=== PATIENT | male | born 1950 | race Caucasian/White ===

== ENCOUNTER 2023-09-12 19:53 | Emergency (ER) | payer MEDICARE, OTHER ==
[~2023-09-12] VITALS: Ht 180.3 cm; Wt 86.4 kg
[2023-09-12 22:20] VITALS: TEMP 98.8
[2023-09-13 02:45] VITALS: BP 141/77; PULSE 75; RESP 16
== END 2023-09-13 03:28 | disposition home or self-care (01) ==
LOC: EMS 20:05
DX: F32.A Depression, unspecified (principal); R45.851 Suicidal ideations; E11.9 Type 2 diabetes mellitus without complications
CPT/HCPCS: 99284; Z7502

== ENCOUNTER 2023-09-13 11:48 | Inpatient (IN) | payer MEDICARE, MEDICAID ==
[~2023-09-13] VITALS: Ht 180.3 cm; Wt 87.9 kg
[2023-09-13 13:37] LABS: BASOPHILS % (AUTO) 0.9 % (0.0-2.0); EOSINOPHILS % (AUTO) 1.5 % (1.0-6.0); HEMATOCRIT 40.6 % (41-53); HEMOGLOBIN 13.4 g/dL (13.5-17.5); LYMPHOCYTES # (AUTO) 2.5 K/uL (1.0-4.8); LYMPHOCYTES % (AUTO) 21.8 % (22.0-44.0); MEAN CORPUSCULAR HEMOGLOBIN 27.6 pg (26.0-34.0); MEAN CORPUSCULAR HGB CONC 32.9 G/dL (31.0-37.0); MEAN CORPUSCULAR VOLUME 84 fL (80-100); MONOCYTES # (AUTO) 0.7 K/uL (0.1-1.0); MONOCYTES % (AUTO) 5.9 % (2.0-9.0); NEUTROPHILS # (AUTO) 7.9 K/uL (1.8-7.7); NEUTROPHILS % (AUTO) 69.9 % (40.0-70.0); PLATELET COUNT (AUTO) 273 K/uL (150-450); RED BLOOD CELL COUNT(AUTO) 4.85 MIL/uL (4.50-5.90); RED CELL DISTRIBUTION WIDTH 14.7 % (11.5-14.5); WHITE BLOOD COUNT (AUTO) 11.3 K/uL (4.5-11.0)
[2023-09-13 13:46] LABS: ANION GAP 8 mmol/L (8-16); CALCIUM, TOTAL 9.4 mg/dL (8.8-10.5); CARBON DIOXIDE 27 mmol/L (22-29); CHLORIDE 104 mmol/L (98-107); CREATININE 0.68 mg/dL (0.60-1.30); GLOMERULAR FILTR. RATE CALC > 60 mL/min (>60); GLUCOSE,RANDOM 102 mg/dL (70-110); POTASSIUM 4.4 mmol/L (3.5-5.1); SODIUM SERUM 139 mmol/L (136-145); UREA NITROGEN, BLOOD 13 mg/dL (7-18)
[2023-09-13 13:52] LABS: ALCOHOL, BLOOD (SERUM) < 3 mg/dL (0-10)
[2023-09-13] MEDS: LORazepam 1 MG TABLET PO ONE (13:59)
[2023-09-13] MEDS: NICOTINE 14 MG/24 HOUR PATCH TD ONE (15:14)
[2023-09-13 16:25] LABS: COVID AG,FIA SOURCE NASAL SWAB
[2023-09-13 16:50] LABS: SARS-COV2 (COVID) ANTIGEN,FIA Negative (Negative)
[2023-09-13] MEDS: ZOLPIDEM TARTRATE 10 MG TABLET PO PRN (21:02)
[2023-09-13 21:15] VITALS: BP 145/77; PULSE 76; RESP 18; TEMP 97.5
[2023-09-14 05:58] LABS: APPEARANCE,URINE CLEAR (CLEAR); BILIRUBIN,URINE NEGATIVE (NEGATIVE); COLOR,URINE YELLOW (YELLOW); GLUCOSE, URINE (UA) NEGATIVE (NEGATIVE); KETONES,URINE NEGATIVE (NEGATIVE); LEUKOCYTE ESTERASE ,URINE NEGATIVE (NEGATIVE); NITRATE,URINE NEGATIVE (NEGATIVE); OCCULT BLOOD,URINE NEGATIVE (NEGATIVE); PH,URINE 6.5 (5.0-8.0); PH,URINE DRUG SCREEN 6.5 (5.0-8.0); PROTEIN,URINE TRACE mg/dL (NEGATIVE); SPECIFIC GRAVITIY, URINE 1.028 (1.003-1.030)
[2023-09-14] MEDS ORDERED: CloNIDine HCL 0.1 MG TABLET PO PRN (06:00)
[2023-09-14] MEDS ORDERED: ONDANSETRON HCL 4 MG TABLET PO PRN (06:00)
[2023-09-14] MEDS ORDERED: LOPERAMIDE HCL 2 MG CAPSULE PO PRN (06:00)
[2023-09-14] MEDS ORDERED: PETROLATUM,WHITE 28 GM JELLY TP PRN (06:00)
[2023-09-14] MEDS ORDERED: ALBUTEROL SULFATE HFA 90 MCG/PUFF 8 GM INHALER IH PRN (06:00)
[2023-09-14] MEDS ORDERED: ACETAMINOPHEN 325 MG TABLET PO PRN (06:00)
[2023-09-14] MEDS ORDERED: MAG HYDROX/ALUMINUM HYD/SIMETH ES 30 ML SUSPENSION UDCUP PO PRN (06:00)
[2023-09-14] MEDS ORDERED: NICOTINE 14 MG/24 HOUR PATCH TD PRN (06:00)
[2023-09-14] MEDS ORDERED: GuaiFENesin/D-METHORPHAN [SUGAR-FREE] 200-20MG/10 ML SYRUP UDCUP PO PRN (06:00)
[2023-09-14] MEDS ORDERED: DOCUSATE SODIUM 100 MG CAPSULE PO PRN (06:00)
[2023-09-14] MEDS ORDERED: MAGNESIUM HYDROXIDE SUSPENSION 30 ML UDCUP PO PRN (06:00)
[2023-09-14] MEDS ORDERED: IBUPROFEN 400 MG TABLET PO PRN (06:00)
[2023-09-14 06:04] LABS: ALCOHOL, URINE DRUG SCREEN NEGATIVE (NEGATIVE); AMPHET/METH SCREEN,URINE NEGATIVE (NEGATIVE); BARBITURATE SCREEN, URINE NEGATIVE (NEGATIVE); BENZODIAZEPINES SCREEN,URINE NEGATIVE (NEGATIVE); CANNABINOID SCREEN,URINE NEGATIVE (NEGATIVE); COCAINE SCREEN,URINE NEGATIVE (NEGATIVE); METHADONE SCREEN, URINE NEGATIVE (NEGATIVE); OPIATE SCREEN,URINE NEGATIVE (NEGATIVE); PHENCYCLIDINE SCREEN,URINE NEGATIVE (NEGATIVE)
[2023-09-14 06:06] LABS: BACTERIA,URINE None Seen /HPF (None Seen); RBC,URINE None Seen /HPF (0-2); SQUAMOUS EPITHELIAL CELL,UR Few /LPF (None Seen); WBC,URINE None Seen /HPF (0-5)
[2023-09-14] MEDS ORDERED: DEXTROSE 50%-WATER 25 GM/50 ML SYRINGE IVP PRN (06:15)
[2023-09-14 06:35] LABS: GLUCOMETER DEV NAME(LOC) 3E.C; GLUCOSE,POINT OF CARE 91 MG/DL (70-110)
[2023-09-14 11:01] VITALS: BP 157/77; PULSE 72; RESP 18; TEMP 97.3; O2SAT 98
[2023-09-14] MEDS: HydrOXYzine PAMOATE 50 MG CAPSULE PO SCH (12:07)
[2023-09-14] MEDS: DIVALPROEX SODIUM 500 MG DR TABLET PO SCH (12:07)
[2023-09-14] MEDS: TAMSULOSIN HCL 0.4 MG CAPSULE PO SCH (12:07)
[2023-09-14] MEDS: PANTOPRAZOLE SODIUM 40 MG DR TABLET PO SCH (12:07)
[2023-09-14] MEDS: OLANZapine 10 MG TABLET PO SCH (12:10)
[2023-09-14] MEDS: MIDODRINE HCL 5 MG TABLET PO SCH (12:26)
[2023-09-14] MEDS: MetFORMIN HCL 850 MG TABLET PO SCH (12:26)
[2023-09-14] MEDS: APIXABAN 5 MG TABLET PO SCH (12:27)
[2023-09-14] MEDS: INSULIN LISPRO 100 UNITS/ML SQ PRN (16:44)
[2023-09-14 17:00] LABS: GLUCOMETER DEV NAME(LOC) 3E.C; GLUCOSE,POINT OF CARE 82 MG/DL (70-110)
[2023-09-14] MEDS ORDERED: OLANZapine 10 MG TABLET PO SCH (21:00)
[2023-09-14 21:10] VITALS: BP 102/67; PULSE 64; RESP 19; TEMP 97.9; O2SAT 97
[2023-09-15 06:45] LABS: GLUCOMETER DEV NAME(LOC) 3E.C; GLUCOSE,POINT OF CARE 106 MG/DL (70-110)
[2023-09-15 08:22] VITALS: BP 150/84; PULSE 78; RESP 20; TEMP 98.2; O2SAT 98
[2023-09-15 08:24] LABS: THYROID STIMULATING HORMONE 1.35 uIU/mL (0.36-3.74)
[2023-09-15 09:10] LABS: CHOL/HDL RATIO 3.8 (4.2-7.3)
[2023-09-15 16:51] LABS: GLUCOMETER DEV NAME(LOC) 3E.C; GLUCOSE,POINT OF CARE 121 MG/DL (70-110)
[2023-09-15 20:56] VITALS: BP 125/63; PULSE 69; RESP 19; TEMP 97.5; O2SAT 98
[2023-09-16 06:51] LABS: GLUCOMETER DEV NAME(LOC) 3E.C; GLUCOSE,POINT OF CARE 91 MG/DL (70-110)
[2023-09-16] MEDS: QUEtiapine FUMARATE 100 MG TABLET PO PRN (12:38)
[2023-09-16] MEDS: LORazepam 2 MG TABLET PO PRN (12:38)
[2023-09-16 12:44] VITALS: BP 107/64; PULSE 72; RESP 18; TEMP 98.3; O2SAT 98
[2023-09-16 17:30] LABS: GLUCOMETER DEV NAME(LOC) 3E.C; GLUCOSE,POINT OF CARE 105 MG/DL (70-110)
[2023-09-16 20:49] VITALS: BP 143/65; PULSE 92; RESP 18; TEMP 97.3; O2SAT 97
[2023-09-17 06:51] LABS: GLUCOMETER DEV NAME(LOC) 3E.C; GLUCOSE,POINT OF CARE 87 MG/DL (70-110)
[2023-09-17] MEDS: MetFORMIN HCL 500 MG TABLET PO SCH (06:51)
[2023-09-17 08:15] VITALS: BP 126/54; PULSE 77; RESP 17; TEMP 97.9; O2SAT 98
[2023-09-17] MEDS: APIXABAN 2.5 MG TABLET PO SCH (08:32)
[2023-09-17 17:21] LABS: GLUCOMETER DEV NAME(LOC) 3E.C; GLUCOSE,POINT OF CARE 130 MG/DL (70-110)
[2023-09-17 21:08] VITALS: BP 148/80; PULSE 75; RESP 18; TEMP 97.3; O2SAT 97
[2023-09-18 06:30] LABS: GLUCOMETER DEV NAME(LOC) 3E.C; GLUCOSE,POINT OF CARE 90 MG/DL (70-110)
[2023-09-18 09:43] VITALS: BP 159/71; PULSE 74; RESP 18; TEMP 97.6; O2SAT 99
[2023-09-18] MEDS ORDERED: HALOPERIDOL LACTATE 5 MG/ML VIAL ONE (10:25)
[2023-09-18] MEDS ORDERED: DiphenhydrAMINE HCL 50 MG/ML VIAL ONE (10:25)
[2023-09-18] MEDS ORDERED: LORazepam 2 MG/ML VIAL ONE (10:25)
[2023-09-18] MEDS: LORazepam 2 MG/ML VIAL IM ONE (10:38)
[2023-09-18] MEDS: DiphenhydrAMINE HCL 50 MG/ML VIAL IM ONE (10:38)
[2023-09-18] MEDS: HALOPERIDOL LACTATE 5 MG/ML VIAL IM ONE (10:38)
[2023-09-18 17:26] LABS: GLUCOMETER DEV NAME(LOC) 3E.C; GLUCOSE,POINT OF CARE 118 MG/DL (70-110)
[2023-09-18 20:55] LABS: GLUCOMETER DEV NAME(LOC) 3E.C; GLUCOSE,POINT OF CARE 123 MG/DL (70-110)
[2023-09-18 21:12] VITALS: RESP 18
[2023-09-19 06:50] LABS: GLUCOMETER DEV NAME(LOC) 3E.C; GLUCOSE,POINT OF CARE 111 MG/DL (70-110)
[2023-09-19 08:49] VITALS: BP 153/73; PULSE 77; RESP 17; TEMP 98; O2SAT 100
[2023-09-19 17:16] LABS: GLUCOMETER DEV NAME(LOC) 3E.C; GLUCOSE,POINT OF CARE 121 MG/DL (70-110)
[2023-09-19 20:30] VITALS: BP 112/53; PULSE 79; RESP 18; TEMP 97.9; O2SAT 97
[2023-09-20 06:40] LABS: GLUCOMETER DEV NAME(LOC) 3E.C; GLUCOSE,POINT OF CARE 103 MG/DL (70-110)
[2023-09-20 09:48] VITALS: RESP 19
[2023-09-20 10:39] LABS: BASOPHILS % (AUTO) 0.7 % (0.0-2.0); EOSINOPHILS % (AUTO) 1.4 % (1.0-6.0); HEMATOCRIT 38.7 % (41-53); HEMOGLOBIN 12.7 g/dL (13.5-17.5); LYMPHOCYTES # (AUTO) 2.2 K/uL (1.0-4.8); LYMPHOCYTES % (AUTO) 25.9 % (22.0-44.0); MEAN CORPUSCULAR HEMOGLOBIN 27.3 pg (26.0-34.0); MEAN CORPUSCULAR HGB CONC 32.8 G/dL (31.0-37.0); MEAN CORPUSCULAR VOLUME 83 fL (80-100); MONOCYTES # (AUTO) 0.7 K/uL (0.1-1.0); MONOCYTES % (AUTO) 8.1 % (2.0-9.0); NEUTROPHILS # (AUTO) 5.4 K/uL (1.8-7.7); NEUTROPHILS % (AUTO) 63.9 % (40.0-70.0); PLATELET COUNT (AUTO) 214 K/uL (150-450); RED BLOOD CELL COUNT(AUTO) 4.64 MIL/uL (4.50-5.90); RED CELL DISTRIBUTION WIDTH 14.7 % (11.5-14.5); WHITE BLOOD COUNT (AUTO) 8.4 K/uL (4.5-11.0)
[2023-09-20 16:36] LABS: GLUCOMETER DEV NAME(LOC) 3E.C; GLUCOSE,POINT OF CARE 115 MG/DL (70-110)
[2023-09-20 22:18] VITALS: RESP 18
[2023-09-21 06:40] LABS: GLUCOMETER DEV NAME(LOC) 3E.C; GLUCOSE,POINT OF CARE 106 MG/DL (70-110)
[2023-09-21 09:01] VITALS: BP 149/75; PULSE 78; RESP 18; TEMP 98.7
[2023-09-21 21:00] VITALS: BP 139/70; PULSE 77; RESP 18; TEMP 98.2
[2023-09-22 06:46] LABS: GLUCOMETER DEV NAME(LOC) 3E.C; GLUCOSE,POINT OF CARE 98 MG/DL (70-110)
[2023-09-22 06:46] LABS: GLUCOMETER DEV NAME(LOC) 3E.C; GLUCOSE,POINT OF CARE 93 MG/DL (70-110)
[2023-09-22 09:22] VITALS: BP 134/65; PULSE 126; RESP 18; TEMP 97.9
[2023-09-22 16:45] LABS: GLUCOMETER DEV NAME(LOC) 3E.C; GLUCOSE,POINT OF CARE 101 MG/DL (70-110)
[2023-09-22 21:57] VITALS: BP 132/72; PULSE 89; RESP 18; TEMP 97.9; O2SAT 98
[2023-09-23 07:05] LABS: GLUCOMETER DEV NAME(LOC) 3E.C; GLUCOSE,POINT OF CARE 95 MG/DL (70-110)
[2023-09-23 10:38] VITALS: BP 134/73; PULSE 63; RESP 17; TEMP 97.9; O2SAT 96
[2023-09-23 17:25] LABS: GLUCOMETER DEV NAME(LOC) 3E.C; GLUCOSE,POINT OF CARE 92 MG/DL (70-110)
[2023-09-23 21:17] VITALS: BP 122/60; PULSE 79; RESP 18; TEMP 98.2
[2023-09-24 08:10] VITALS: BP 119/64; PULSE 77; RESP 18; TEMP 97.2; O2SAT 97
[2023-09-24 20:57] VITALS: BP 116/54; PULSE 74; RESP 18; TEMP 98.1; O2SAT 97
[2023-09-25 09:43] VITALS: BP 126/55; PULSE 78; RESP 18; TEMP 97.8; O2SAT 96
[2023-09-25 21:41] VITALS: BP 133/68; PULSE 65; RESP 18; TEMP 97.8; O2SAT 96
[2023-09-26 08:57] VITALS: BP 132/61; PULSE 74; RESP 16; TEMP 97.9; O2SAT 96
[2023-09-26 20:14] VITALS: BP 130/71; PULSE 69; RESP 18; TEMP 98.2; O2SAT 96
[2023-09-27 08:00] VITALS: BP 135/69; PULSE 80; RESP 18; TEMP 97.7
[2023-09-27 20:36] VITALS: BP 129/76; PULSE 71; RESP 18; TEMP 97.7
[2023-09-28 08:57] VITALS: BP 145/73; PULSE 74; RESP 18; TEMP 97.3; O2SAT 99
[2023-09-28 20:50] VITALS: BP 136/77; PULSE 77; RESP 18; TEMP 97.5; O2SAT 98
[2023-09-29 08:52] VITALS: BP 149/89; PULSE 76; RESP 19; TEMP 97.4; O2SAT 97
[2023-09-29 22:43] VITALS: BP 129/74; PULSE 78; RESP 18; TEMP 97.6; O2SAT 96
[2023-09-30 08:15] VITALS: BP 118/78; PULSE 82; RESP 18; TEMP 97.7; O2SAT 99
[2023-09-30 21:45] VITALS: BP 112/57; PULSE 67; RESP 18; TEMP 97.5; O2SAT 98
[2023-10-01 08:18] VITALS: BP 137/72; PULSE 70; RESP 18; TEMP 97.5; O2SAT 97
[2023-10-01] MEDS ORDERED: HYDR50CA7 PO (12:18)
[2023-10-01] MEDS ORDERED: DIVA-112 PO (12:18)
[2023-10-01] MEDS ORDERED: OLAN10TA74 PO (12:19)
[2023-10-01] MEDS ORDERED: MIDO5TAB29 PO (12:21)
[2023-10-01] MEDS ORDERED: APIX2.5T PO (12:21)
[2023-10-01] MEDS ORDERED: METF-1211 PO (12:22)
[2023-10-01] MEDS ORDERED: PANT-31 PO (12:22)
[2023-10-01] MEDS ORDERED: TAMS0.4C94 PO (12:23)
== END 2023-10-01 16:00 | DRG 885 ==
LOC: EMS 11:48 → 3EC 15:34
PROVIDERS: ADMIT Psychiatry & Neurology Child & Adolescent Psychiatry; ATTEND Psychiatry & Neurology Child & Adolescent Psychiatry
PROC: GZHZZZZ Group Psychotherapy (ICD-10-PCS; principal; 2023-09-14)
PROC: GZ51ZZZ Individual Psychotherapy, Behavioral (ICD-10-PCS; 2023-09-14)
DX: F25.1 Schizoaffective disorder, depressive type (principal); I48.20 Chronic atrial fibrillation, unspecified; I69.351 Hemiplegia and hemiparesis following cerebral infarction affecting right dominant side; R45.851 Suicidal ideations; D72.829 Elevated white blood cell count, unspecified; E11.9 Type 2 diabetes mellitus without complications; Z20.822 Contact with and (suspected) exposure to COVID-19; N40.0 Benign prostatic hyperplasia without lower urinary tract symptoms; I50.9 Heart failure, unspecified; F03.90 Unspecified dementia, unspecified severity, without behavioral disturbance, psychotic disturbance, mood disturbance, and anxiety; I48.91 Unspecified atrial fibrillation; Z79.84 Long term (current) use of oral hypoglycemic drugs
CPT/HCPCS: 80048; 80061; 80164; 80307; 81001; 82962; 83036; 84443; 85025; 87081; 99285; G0480; J1200; J1630; J2060